=== PATIENT | female | born 1985 | race Caucasian/White ===

== ENCOUNTER 2016-08-18 17:20 | Emergency (ER) | payer OTHER ==
[2016-08-18 18:07] VITALS: BMI 35.8
[2016-08-18 18:10] VITALS: BP 139/90; PULSE 74; RESP 16; TEMP 98.3; O2SAT 100
== END 2016-08-18 22:54 | disposition left against medical advice (07) ==
LOC: ED 17:20
DX: Z02.89 Encounter for other administrative examinations (principal); R07.0 Pain in throat